=== PATIENT | male | born 1970 | race Caucasian/White ===

== ENCOUNTER 2023-04-22 10:15 | Emergency (ER) | payer OTHER, SELFPAY ==
[2023-04-22 10:21] VITALS: BP 149/106; PULSE 74; RESP 18; TEMP 36.9; O2SAT 100; BMI 43.6
[2023-04-22] MEDS: KETOROLAC TROMETHAMINE 60 MG/2 ML VIAL IM (11:03)
[2023-04-22] MEDS: ACETAMINOPHEN 500 MG TABLET PO (11:03)
--- NOTE | 2023-04-22 11:49 | ED_ITS ---
HPI - General Adult General Chief complaint: Neck Pain/Injury Stated complaint: BACK PAIN Time Seen by Provider: 04/22/23 10:30 Source: patient Mode of arrival: walk-in History of Present Illness HPI narrative: Patient is a 52-year-old male who is presenting to the Emergency Room with chief complaint of left upper thoracic pain this started this morning. Patient had no acute injury that he is aware of yesterday. Patient has no Tylenol home. Patient takes blood thinners. Patient is aware that he cannot take long-term anti- inflammatories with blood thinners. Patient needs to buy some Tylenol. Patient does not remember any type of heavy lifting, twisting or turning yesterday. 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 He has no headache or neck pain. No chest pain or yadi rtness of breath. No other acute complaints. Patient went to an urgent care earlier, stated it was a 2 hour wait, so he came to the Emergency Room for evaluation. No rash. No other acute complaints. . All systems are negative except as noted/marked. All systems reviewed and otherwise negative. . Nurses note and vital signs reviewed and patient is not hypoxic. General: The patient appears well and in no apparent distress. Patient is resting comfortably on cart. Patient is not toxic, lethargic, or listless Skin: Warm, dry, no pallor noted. There is no rash noted. No petechiae, purpura. Head: Normocephalic, atraumatic Eye: Normal conjunctiva, no drainage, EOMI. PERRL Ears, Nose, Mouth, and Throat: oral mucosa is moist. Nares patent. Mouth without vesicles. Cardiovascular: Regular Rate and Rhythm, no murmur, gallop, rub; patient has no tenderness to palpation to the anterior, lateral chest wall. Respiratory: Patient is in no distress, no accessory muscle use, lungs are clear to auscultation, no wheezing, rales or rhonchi Back: patient has mild to moderate tenderness to palpation to the soft tissue to left upper thoracic area over the scapula. Patient has no midline or paracer vical tenderness to palpation, full range of motion of cervical spinal no difficulty, patient has no rash. Patient has no midline thoracic pain. Patient has pain along the left trapezius muscle, pain is reproducible with range of motion of left upper extremity as well. non-tender, no CVA tenderness bilaterally to percussion. No CT LS midline pain GI: soft, no tenderness to palpation, no masses appreciated. No rebound, guarding, or rigidity noted. No flank pain bilateral, No distention Musculoskeletal: Patient has full range of motion of all of the extremities, no motor, sensory, or focal neurological deficits Neurological: A&O x3, normal speech Psychiatric: Cooperative Related Data Allergies Allergy/AdvReac Type Severity Reaction Status Date / Time No Known Drug Allergies Allergy Verified 04/22/23 10:21 Exam Constitutional Vital Signs, click to edit/add: Last Vital Signs Temp 98.4 F 04/22/23 10:21 Pulse 74 04/22/23 10:21 Resp 18 04/22/23 10:21 BP 149/106 H 04/22/23 10:21 Pulse Ox 100 04/22/23 10:21 O2 Del Method Room Air 04/22/23 10:21 Course Vital Signs Vital signs: Vital Signs Temperature 98.4 F 04/22/23 10:21 Pulse Rate 74 04/22/23 10:21 Respiratory Rate 18 04/22/23 10:21 Blood Pressure 149/106 H 04/22/23 10:21 Pulse Oximetry 100 04/22/23 10:21 Oxygen Delivery Method Room Air 04/22/23 10:21 Temperature 98.4 F 04/22/23 10:21 Pulse Rate 74 04/22/23 10:21 Respiratory Rate 18 04/22/23 10:21 Blood Pressure 149/106 H 04/22/23 10:21 Pulse Oximetry 100 04/22/23 10:21 Oxygen Delivery Method Room Air 04/22/23 10:21 Medical Decision Making MDM Narrative Medical decision making narrative: patient was given Tylenol and injection of Toradol. Patient was educated that he could use NSAIDs short-term. Patient can use Tylenol. Patient does not want a muscle relaxer. Patient was given a work note. Patient was educated on ice and stretching. No questions at discharge. Discharge Plan Discharge Chief Complaint: Neck Pain/Injury Clinical Impression: Acute left-sided thoracic back pain Patient Disposition: Home, Self-Care Condition: Fair Instructions: Thoracic Pain (ED), Neck Pain (ED) Additional Instructions: do not use heat as discussed. Ice 20 minutes on, 20 minutes off. Use Tylenol. You may use short-term at sent for the next 3-4 days to help with pain and inflammation along with ice. if no improvement, follow up with chiropractor or your PCP for physical therapy if needed. Work restrictions given. Stand Alone Forms: Work/School Release, Portal Instructions Referrals: Evelio Soto MD [Primary Care Provider] - 1 week
[2023-04-22 11:54] VITALS: BP 147/88; PULSE 83; RESP 18; O2SAT 97
== END 2023-04-22 11:57 | disposition home or self-care (01) ==
PROVIDERS: Emergency Provider Emergency Medicine; PCP Family Medicine
DX: M54.6 Pain in thoracic spine (principal); Z79.899 Other long term (current) drug therapy
CPT/HCPCS: 96372; 99284

== ENCOUNTER 2023-04-28 16:09 | Outpatient (OUT) | payer OTHER, SELFPAY ==
[2023-04-28 16:33] LABS: Basophils Percent Auto 0.6 % (0.2-2.0); Eosinophils Absolute Auto 0.1 10^3/uL (0.0-0.7); Eosinophils Percent Auto 2.8 % (0.9-7.0); Hematocrit 39.7 % (42.0-54.0); Hemoglobin 13.8 g/dL (14.0-18.0); Immature Granulocytes Abs Auto 0.02 10^3/uL (0.00-0.03); Immature Granulocytes Pct Auto 0.4 % (0.0-0.5); Lymphocytes Absolute Auto 1.3 10^3/uL (1.2-3.8); Lymphocytes Percent Auto 25.4 % (20.5-60.0); Mean Corpuscular HGB Conc 34.8 g/dL (29.9-35.2); Mean Corpuscular Hemoglobin 34.5 pg (25.9-34.0); Mean Corpuscular Volume 99.3 fL (80.0-94.0); Mean Platelet Volume 10.2 fL (9.5-13.5); Monocytes Absolute Auto 0.5 10^3/uL (0.3-0.8); Monocytes Percent Auto 10.6 % (1.7-12.0); Neutrophils Percent Auto 60.2 % (43.0-75.0); Platelet Count 150 10^3/uL (150-450); Red Cell Distribution Width 11.5 % (11.0-15.0); White Blood Count 4.9 10^3/uL (4.0-11.0)
[2023-04-28 17:06] LABS: Alanine Aminotransferase 56 U/L (16-63); Albumin Globulin Ratio 0.8; Albumin Level 3.3 g/dL (3.4-5.0); Alkaline Phosphatase 117 U/L (46-116); Anion Gap 9.4; Aspartate Amino Transferase 35 U/L (15-37); BUN Creatinine Ratio 13.8; Bilirubin Direct 0.3 mg/dL (0.0-0.2); Carbon Dioxide 27.7 mmol/L (21.0-32.0); Chloride 97 mmol/L (98-107); Chol HDL Ratio 2.3; Cholesterol 169 mg/dL (<=200); Estimated GFR (African America >60 (>=60); Estimated GFR (Non-African Ame >60 (>=60); Globulin 4.3 g/dL; Glucose 277 mg/dL (74-106); HDL Cholesterol 73 mg/dL (40-60); Potassium 4.1 mmol/L (3.5-5.1); Sodium 130 mmol/L (136-145); Thyroid Stimulating Hormone 2.449 uIU/mL (0.358-3.740); Total Protein 7.6 g/dL (6.4-8.2); Triglycerides 135 mg/dL (<=150)
[2023-04-28 17:26] LABS: Prostate Specific Antigen Scrn 0.24 ng/mL (<=4.00)
[2023-04-28 17:45] LABS: Estimated Average Glucose 324 mg/dL; Glycohemoglobin A1C 12.9 % (4.5-6.2)
== END 2023-04-28 16:10 | disposition home or self-care (01) ==
LOC: LAB 16:10
PROVIDERS: PCP Family Medicine; Visit Provider Family Medicine
DX: Z00.00 Encounter for general adult medical examination without abnormal findings (principal); Z12.5 Encounter for screening for malignant neoplasm of prostate
CPT/HCPCS: 36415; 80048; 80061; 80076; 83036; 84443; 85025; G0103

== ENCOUNTER 2025-05-01 20:24 | Emergency (ER) | payer OTHER, SELFPAY ==
[2025-05-01 20:29] VITALS: BP 126/75; PULSE 82; TEMP 36.8; O2SAT 96; BMI 42.4
--- OUTSIDE RECORDS SUMMARY | 2025-05-01 20:31 | XMS_ITS | Encounter Summary ---
Author Organization [facility] Address [address] [place] [address] Phone Care Team Providers Care Electrical Controls Engineer Name Role Phone Evelio Soto MD Primary Care Provider + Evelio Soto MD Primary Care Provider + Encounter Details Date Type Department Care Team (Late st Contact Info) Description 04/27/2018 Orders Only [facility] [address] [place] [address] Conversion, Onbase Social History Tobacco Use Types Packs/Day Years Used Date Smoking Tobacco: Never Assessed Sex and Gender Information Value Date Recorded Sex Assigned at Not on file Legal Sex Male 1:44 AM EST Gender Identity Not on file Sexual Orientation Not on file documented as of this encounter Plan of Treatment Upcoming Encounters Date Type Department Care Team (Late st Contact Info) Description 12/08/2025 9:00 AM EDT Office Visit [facility] [address] [facility] [address] [place] [address] Og Tobin DO [address] [facility] [address] [place] [address] Scheduled Orders Name Type Priority Associated Diagnoses Orde r Schedule OUTSIDE LAB SCAN Lab Ordered: 04/27/2018 documented as of this encounter Visit Diagnoses Not on filedocumented in this encounter Care Teams Electrical Controls Engineer Relationship Specialty Start Date End Date Evelio Soto MD PCP - General 02/18/22 12/16/23 Evelio Soto MD [address] [place] [address] PCP - General Family Medicine 12/17/23 documented as of this encounter
--- OUTSIDE RECORDS SUMMARY | 2025-05-01 20:31 | XMS_ITS | Encounter Summary ---
Author Organization [facility] Address [address] [place] [address] Care Team Providers Care Information Systems Security Manager Name Role Phone Evelio Soto MD Primary Care Provider [phone] Reason for Visit * Reason Comments Med Refill Encounter Details Date Type Department Care Team (Late st Contact Info) Description 12/28/2024 Refill [facility] [address] [place] [address] Evelio Soto MD [address] [place] [address] Type 2 diabetes mellitus with hyperglycemia (HCC) Social History Tobacco Use Types Packs/Day Years Used Date Smoking Tobacco: Former Cigarettes 1 33.7 1 989 - 06/2022 Smokeless Tobacco: Never Sex and Gender Information Value Date Recorded Sex Assigned at Not on file Legal Sex Male 1:55 PM EDT Gender Identity Not on file Sexual Orientation Not on file documented as of this encounter Miscellaneous Notes * Telephone Encounter - AMISHA HERMOSILLO - 12/28/2024 8:24 AM EDT MEDICATION SENT TO [facility] documented in this encounter Plan of Treatment Upcoming Encounters Date Type Department Care Team (Late Contact Info) Description 08/05/2025 11:30 AM EST Office Visit [facility] [address] [place] [address] Evelio Soto MD [address] [place] [address] documented as of this encounter Visit Diagnoses Diagnosis Type 2 diabetes mellitus with hyperglycemia (HCC) documented in this encounter Care Teams Information Systems Security Manager Relationship Specialty Start Date End Date Evelio Soto MD [address] [place] [address] PCP - General Family Medicine 05/07/24 documented as of this encounter
--- OUTSIDE RECORDS SUMMARY | 2025-05-01 20:31 | XMS_ITS | Clinical Summary ---
Author Organization [facility] Address [address] [place] [address] Phone Care Team Providers Care Assistant Designer Name Role Phone Evelio Soto MD Primary Care Provider + Allergies Active Allergy Reactions Criticality Noted Date Comments Glipizide Nausea/vomiting 12/17/2023 Medications aspirin 81 mg EC tablet Take 1 tablet (81 mg) by mouth once daily. Active metFORMIN XR 500 mg 24 hr tablet Take 1 tablet (500 mg) by mouth 2 times a day. 4 Active furosemide (Lasix) 40 mg tablet Take 1 tablet (40 mg) by mouth once daily. Active valsartan (Diovan) 160 mg tabletIndications:M oderate mixed hyperlipidemia not requiring statin therapy Take 1 tablet (160 mg) by mouth once daily. 90 tablet 3 4 Active metoprolol tartrate (Lopressor) 50 mg tabletIndications:H ypertension, unspecified type,Acute heart failure with normal ejection fraction,Coronary artery disease involving [place] coronary artery of [place] heart without angina pectoris Take 1 tablet by mouth 2 times a day. 180 tablet 3 4 Active atorvastatin (Lipitor) 40 mg tabletIndications:C oronary artery disease involving [place] coronary artery of [place] heart without angina pectoris,Acute heart failure with normal ejection fraction,Hx of percutaneous transluminal coronary angioplasty Take 1 tablet (40 mg) by mouth once daily at bedtime. 90 tablet 3 5 12/09/19 26 Active nitroglycerin (Nitrostat) 0.4 mg SL tabletIndications:H yperlipidemia, unspecified hyperlipidemia type Place 1 tablet (0.4 mg) under the tongue every 5 minutes if needed for chest pain. 90 tablet 2 Active Active Problems Problem Noted Date Diagnosed Date Hx of percutaneous transluminal coronary angiopl asty 12/08/2024 Class 2 obesity with body ma ss index (BMI) of 38.0 to 38.9 in adult 12/17/2023 Former cigarette smoker 12/17/2023 Acute heart failure with normal ejection fractio n 10/22/2023 Abnormal stress test 10/22/2023 Coronary artery disease invo lving [place] coronary artery of [place] heart without angina pectoris 10/22/2023 Diabetes (Multi) 10/22/2023 Hyperlipemia 10/22/2023 Hypertension 10/22/2023 Family History Medical History Relation Name Comments s/p drug eluting coronary stent placement Father Diabetes type I Mother Relation Name Status Comments Father Mother Social History Tobacco Use Types Packs/Day Years Used Date Smoking Tobacco: Former Cigarettes Q uit: 2021 Smokeless Tobacco: Never Tobacco Cessation:Counseling Given: Not Answered Alcohol Use Standard Drinks/Week Comments Yes 0 (1 standard drink = 0.6 oz pur e alcohol) occasional Sex and Gender Information Value Date Recorded Sex Assigned at Not on file Legal Sex Male 1:44 AM EST Gender Identity Not on file Sexual Orientation Not on file Last Filed Vital Signs Vital Sign Reading Time Taken Comments Blood Pressure 118/70 12/08/2024 9:12 AM EDT Pulse 68 12/08/2024 9:12 AM EDT Temperature - - Respiratory Rate - - Oxygen Saturation - - Inhaled Oxygen Concentration - - Weight 118 kg (260 lb) 12/08/2024 9:12 AM EDT Height 167.6 cm (5' 6 ) 12/08/2024 9:12 AM EDT Body Mass Index 41.97 12/08/2024 9:12 AM EDT Plan of Treatment Upcoming Encounters Date Type Department Care Team (Late st Contact Info) Description 12/08/2025 9:00 AM EDT Office Visit [facility] [address] [facility] [address] [place] [address] gO Tobin DO [address] [facility] [address] [place] [address] Health Maintenance Due Date Last Done Comments CT Colonography 1970 Colonoscopy 1970 Colorectal Cancer Screening 1970 Creatinine Level 1970 Diabetes: Hemoglobin A1C 1970 Echocardiogram 1970 FIT-DNA (Cologuard) 1970 FIT 1970 HIV Screening 1970 Lipid Panel 1970 Potassium Level 1970 Sigmoidoscopy 1970 MMR Vaccines (1 of 1 - Standard series) 1971 COVID-19 Vaccine (#1) 1975 Diabetes: Retinopathy Screening 1980 Hepatitis C Screening 1988 Hepatitis B Vaccines (1 of 3 - 19+ 3-dose series) 1989 Pneumococcal Vaccine (1 of 2 - PCV) 1989 Zoster Vaccines (1 of 2) 1989 PSA Prostate Cancer Screening 2020 Influenza Vaccine (#1) 2025 Diabetes: Urine Protein Screening 06/14/2025 06/14/2024 Yearly Adult Physical 11/06/2025 11/05/2024 DTaP/Tdap/Td Vaccines (3 - T d or Tdap) 06/14/2032 06/14/2022, 10/26/2017 HIB Vaccines Aged Out No longer eligi ble based on patient's age to complete this topic HPV Vaccines Aged Out No longer eligi ble based on patient's age to complete this topic Hepatitis A Vaccines Aged Out No long er eligible based on patient's age to complete this topic IPV Vaccines Aged Out No longer eligi ble based on patient's age to complete this topic Meningococcal Vaccine Aged Out No john srinivasa eligible based on patient's age to complete this topic Rotavirus Vaccines Aged Out No longer eligible based on patient's age to complete this topic Insurance * Guarantor: Darrel Roy Account Type Relation to Patient Date of Phone Billing Address Personal/Family Self 1970 [address] [facility] [place] [address] [facility] [employer] * Guarantor: Darrel Roy Account Type Relation to Patient Date of Phone Billing Address Personal/Family Self 1970 [address] [place] [address] [facility] [employer] Care Teams Assistant Designer Relationship Specialty Start Date End Date Evelio Soto MD [address] [place] [address] PCP - General Family Medicine 12/17/23
--- OUTSIDE RECORDS SUMMARY | 2025-05-01 20:31 | XMS_ITS | Encounter Summary ---
Author Organization [facility] Address [address] [place] [address] Phone Care Team Providers Care Airline Pilot Name Role Phone Evelio Soto MD Primary Care Provider + Evelio Soto MD Primary Care Provider + Encounter Details Date Type Department Care Team (Late st Contact Info) Description 11/25/2022 Orders Only [facility] [address] [place] [address] Conversion, Onbase Social History Tobacco Use Types [...] Description 12/08/2025 9:00 AM EDT Office Visit [facility] [address] [facility] [address] [place] [address] Og Tobin DO [address] [facility] [address] [place] [address] Scheduled Orders Name Type Priority Associated Diagnoses Orde r Schedule OUTSIDE LAB SCAN Lab Ordered: 11/25/2022 documented as of this encounter Visit Diagnoses Not on filedocumented in this encounter Care Teams Airline Pilot Relationship Specialty Start Date End Date Evelio Soto MD PCP - General 02/18/22 12/16/23 Evelio Soto MD [address] [place] [address] PCP - General Family Medicine 12/17/23 documented as of this encounter
--- OUTSIDE RECORDS SUMMARY | 2025-05-01 20:31 | XMS_ITS | Clinical Summary ---
Author Organization [facility] Healthcare Address [address] [place] [address] Care Team Providers Care Telemarketing Sales Representative Name Role Phone Evelio Soto MD Primary Care Provider [phone] Allergies Active Allergy Reactions Criticality Noted Date Comments Glipizide GI intolerance Low 10/27/2023 Medications aspirin 81 MG EC tablet Take 81 mg by mouth in the morning. Active atorvastatin (Lipitor) 80 MG tablet Take 80 mg by mouth Daily Active metoprolol tartrate (Lopressor) 50 MG tabletIndications: Essential hypertension, benign Take 1 tablet (50 mg) by mouth in the morning and 1 tablet (50 mg) before bedtime. 180 tablet 3 4 Active valsartan (Diovan) 160 MG tabletIndications: Essential hypertension, benign Take 1 tablet (160 mg) by mouth Daily 30 tablet 11 4 09/03/20 25 Active metFORMIN XR (Glucophage-XR) 500 MG 24 hr tabletIndications: Type 2 diabetes mellitus with hyperglycemia (HCC) TAKE 1 TABLET BY MOUTH IN THE MORNING AND 1 TABLET BEFORE BEDTIME 60 tablet 5 5 Active furosemide (Lasix) 40 MG tabletIndications: Venous insufficiency TAKE 1 TABLET BY MOUTH DAILY NEEDED FOR EDEMA. 30 tablet 3 5 Active Active Problems Problem Noted Date Diagnosed Date Annual physical exam 11/05/2024 Assessment & Plan (11/05/2024 9:50 AM EST): Reviewed labs. Discussed proper diet and regular aerobic exercise. Need aerobic exercise 5-6 days a week for 30 minutes at a time. Smaller portions and limit total calories. Declined colon cancer screening. Tetanus every 10 years. Advised not to smoke. Discussed daily Aspirin therapy. Sebaceous cyst 08/05/2024 Assessment & Plan (08/05/2024 10:36 AM EST): Lesion appears to be benign cyst and monitor. If changes can refer to derm. Class 3 severe obesity due t o excess calories with serious comorbidity and body mass index (BMI) of 40.0 to 44.9 in adult 05/07/2024 Assessment & Plan (02/02/2025 10:39 AM EDT): Weight loss indicated. Assessment & Plan (11/05/2024 9:50 AM EST): Weight loss indicated. Assessment & Plan (08/05/2024 10:36 AM EST): Weight loss indicated. Assessment & Plan (05/07/2024 11:10 AM EDT): Weight loss indicated Essential hypertension, benign 10/27/2023 Assessment & Plan (02/02/2025 10:39 AM EDT): BP controlled and monitor PRN. Assessment & Plan (11/05/2024 9:51 AM EST): BP controlled and monitor PRN. Assessment & Plan (08/05/2024 10:35 AM EST): BP controlled and monitor PRN. Assessment & Plan (05/07/2024 11:09 AM EDT): BP controlled and monitor PRN. Assessment & Plan (10/27/2023 10:05 AM EST): BP controlled and monitor PRN. CAD in [place] 10/27/2023 Assessment & Plan (02/02/2025 10:39 AM EDT): No symptoms and follow up with cardiology. Assessment & Plan (08/05/2024 10:35 AM EST): No symptoms and follow up with cardiology. Assessment & Plan (05/07/2024 11:08 AM EDT): No symptoms and follow up with cardiology. Assessment & Plan (10/27/2023 10:05 AM EST): No symptoms and follow up with cardiology. Male erectile disorder 10/27/2023 Type 2 diabetes mellitus wit h hyperglycemia, without long-term current use of insulin 10/27/2023 Assessment & Plan (02/02/2025 10:39 AM EDT): BS remain elevated and did not tolerate glipizide. Due for A1C. Continue metformin. Stick to ADA diet and limit carbs. Assessment & Plan (11/05/2024 9:51 AM EST): BS remain elevated and add glipizide. Take with dinner and continue metformin. Stick to ADA diet and limit carbs. Assessment & Plan (08/05/2024 10:36 AM EST): BS remains elevated and last A1C 10.0. Try januvia and see if able to get coverage. Stick to ADA diet and limit carbs. Assessment & Plan (05/07/2024 11:09 AM EDT): Reports BS elevated and due for A1C. Try rybelsus and see if able to get coverage. Stick to ADA diet and limit carbs. Assessment & Plan (10/27/2023 10:05 AM EST): Reports BS elevated and due for A1C. Stick to ADA diet and limit carbs. Chronic heart failure with p reserved ejection fraction (HFpEF) 10/27/2023 Assessment & Plan (02/02/2025 10:39 AM EDT): Edema stable and use lasix PRN. Elevate legs PRN. Assessment & Plan (11/05/2024 9:50 AM EST): Edema stable and use lasix PRN. Elevate legs PRN. Assessment & Plan (08/05/2024 10:35 AM EST): Edema stable and use lasix PRN. Elevate legs PRN. Assessment & Plan (05/07/2024 11:09 AM EDT): Edema stable and use lasix PRN. Elevate legs PRN. Assessment & Plan (10/27/2023 10:06 AM EST): Edema unchanged and try lasix. Elevate legs PRN. Follow up with vascular. Resolved Problems Problem Noted Date Diagnosed Date Resolved Date Chronic heart failure with p reserved ejection fraction (HFpEF) 10/27/2023 10/27/2023 Encounters Date Type Department Care Team Description 02/02/2025 9:30 AM EDT Office Visit [facility] [address] [place] [address] Evelio Soto MD Type 2 diabetes mellitus with hyperglycemia, without long-term current use of insulin (HCC) (Primary Dx); Essential hypertension, benign ; Chronic heart failure with preserved ejection fraction (HFpEF) ([facility]); CAD in [place] ; Class 3 severe obesity due to excess calories with serious comorbidity and body mass index (BMI) of 40.0 to 44.9 in adult ([facility]) 02/02/2025 Bamboo flowsheet [facility] [address] [place] [address] Evelio Soto MD from Last 3 Months Family History Medical History Relation Name Comments Diabetes Mother Relation Name Status Comments Mother Social History Tobacco Use Types Packs/Day Years Used Date Smoking Tobacco: Former Cigarettes 1 33.7 1 989 - 06/2022 Smokeless Tobacco: Never Tobacco Cessation:Counseling Given: Not Answered Sex and Gender Information Value Date Recorded Sex Assigned at Not on file Legal Sex Male 1:55 PM EDT Gender Identity Not on file Sexual Orientation Not on file Last Filed Vital Signs Vital Sign Reading Time Taken Comments Blood Pressure 132/74 02/02/2025 9:58 AM EDT Pulse 76 02/02/2025 9:58 AM EDT Temperature 36.4 C (97.5 F) 02/02/2025 9:58 AM EDT Respiratory Rate 20 02/02/2025 9:58 AM EDT Oxygen Saturation 98% 02/02/2025 9:58 AM EDT Inhaled Oxygen Concentration - - Weight 122 kg (268 lb) 02/02/2025 9:58 AM EDT Height 167.6 cm (5' 6 ) 02/02/2025 9:58 AM EDT Body Mass Index 43.26 02/02/2025 9:58 AM EDT Plan of Treatment Upcoming Encounters Date Type Department Care Team (Late st Contact Info) Description 08/05/2025 11:30 AM EST Office Visit [facility] [address] [place] [phone] Evelio Soto MD [address] [place] [address] Health Maintenance Due Date Last Done Comments CT Colonography 1970 Colonoscopy 1970 FIT-DNA 1970 FIT 1970 FOBT 1970 Lung Cancer Screening Shared Decision Making 1970 Sigmoidoscopy 1970 Diabetes: Retinopathy Screening 12/02/2024 12/02/2022 Diabetes: Hemoglobin A1C 12/08/2024 024, 11/17/2023 Colorectal Cancer Screening 05/07/2025 Postponed from 1970 (Patient Refused) Influenza Vaccine (#1) 2025 Diabetes: Urine Protein Screening 06/14/2025 06/14/2024 Procedures Procedure Name Priority Date/Time Associated Diagnosis Comments ALBUMIN, URINE, RANDOM Routine 06/14/2024 2:08 PM EDT Type 2 diabetes mellitus with hyperglycemia, without long-term current use of insulin (HCC) HEMOGLOBIN A1C Routine 06/10/2024 3:24 PM EDT Annual physical exam from Last 3 Months or Most Recently Relevant to Health Maintenance Results * Albumin, urine, random (06/14/2024 2:08 PM EDT) ALBUMIN, URINE 2.1 See Note: mg/dL [facility] Comment: Reference Range: Reference Range Not established [facility] Comment: The ADA defines abnormalities in albumin excretion as follows: Albuminuria Category Result (mg/g creatinine) Normal to Mildly increased <30 Moderately increased 30-299 Severely increased > OR = 300 The ADA recommends that at least two of three specimens collected within a 3-6 month period be abnormal before considering a patient to be within a diagnostic category. Urine Urine specimen obtained by clean catch procedure / Unknown 06/14/2024 2:08 PM EDT 06/15/2024 2:10 PM EDT Narrative [facility] - 06/16/2024 11:03 AM EDT SPLIT 06/10/2024 FROM [id number] Resulting Agency Comment Performing Organization Information Site ID: QPT Name: [facility] Address: [address] [place] [address], [address] [place] [id number] Director: Grant Gao MD Evelio Soto MD LAB URINE ORDERABLES Final Resul t [facility] * (ABNORMAL) Hemoglobin A1c (06/10/2024 3:24 PM EDT) Hemoglobin A1C 10.0(H) <5.7 % of total Hgb [facility] Comment: For someone without known diabetes, a hemoglobin A1c value of 6.5% or greater indicates that they may have diabetes and this should be confirmed with a follow-up test. For someone with known diabetes, a value <7% indicates that their diabetes is well controlled and a value greater than or equal to 7% indicates suboptimal control. A1c targets should be individualized based on duration of diabetes, age, comorbid conditions, and other considerations. Currently, no consensus exists regarding use of hemoglobin A1c for diagnosis of diabetes for children. This test was performed on the GoComm aria c503 platform. Effective 09/15/23, a change in test platforms from the [employer] Scientist to the Ayo aria c503 may have shifted HbA1c results compared to historical results. Based on laboratory validation testing conducted at [facility], the Ayo platform relative to the Pinzon platform had an average increase in HbA1c value of < or = 0.3%. This difference is within accepted variability established by the National Glycohemoglobin Standardization Program. Note that not all individuals will have had a shift in their results and direct comparisons between historical and current results for testing conducted on different platforms is not recommended. Blood Venous blood specimen / Unknown 06/10/2024 3:24 PM EDT 06/10/2024 3:25 PM EDT Narrative [facility] - 06/11/2024 5:49 AM EDT FASTING:NO COLLECTION KIT GIVEN TO PATIENT. PATIENT ADVISED TO RETURN. FASTING: NO Resulting Agency Comment Performing Organization Information Site ID: QPT Name: [facility] Address: [address] [place] [address], [address] [place] [phone] Director: Grant Gao MD us Evelio Soto MD LAB BLOOD ORDERABLES Final Resul t [facility] from Last 3 Months or Most Recently Relevant to Health Maintenance Insurance * Guarantor: Darrel Roy Account Type Relation to Patient Date of Phone Billing Address Personal/Family Self 1970 [address] [place] [address] [employer] Care Teams Telemarketing Sales Representative Relationship Specialty Start Date End Date Evelio Soto MD [address] [place] [id number] PCP - General Family Medicine 05/07/24
--- OUTSIDE RECORDS SUMMARY | 2025-05-01 20:31 | XMS_ITS | Clinical Summary ---
Author Organization [email or web address] tem Address [id number] [address] [place] [address] Care Team Providers Care Fiscal Officer Name Role Phone Evelio Soto MD Primary Care Provider [phone] Allergies No known active allergies Medications metoprolol tartrate (LOPRESSOR) 50 mg tabletIndication s:hypertension Take 1 tablet (50 mg total) by mouth in the morning and 1 tablet (50 mg total) before bedtime. Indications: high blood pressure. Active valsartan (DIOVAN) 80 mg tabletIndication s:hypertension Take 2 tablets (160 mg total) by mouth in the morning. Indications: high blood pressure. Active atorvastatin (LIPITOR) 40 mg tabletIndication s:hyperlipidemia Take 1 tablet (40 mg total) by mouth nightly Indications: excessive fat in the blood. Active nitroglycerin (NITROSTAT) 0.[address] 1 tablet (0.4 mg total) under the tongue every 5 (five) minutes as needed for chest pain. Active pediatric multivitamin (FRUITY CHEWS) tablet,chewable Chew 1 tablet and swallow in the morning. Active clopidogreL (PLAVIX) 75 mg tablet Take 1 tablet (75 mg total) by mouth in the morning. 2 Active aspirin 81 mg Take 1 tablet (81 mg total) by mouth in the morning. Active lidocaine (LIDODERM) 5 % Place 1 patch on the skin in the morning. Remove & Discard patch within 12 hours or as directed by . 30 patch 2 Active Additional Information Patient not taking.Reported on 07/25/2022 sennosides-docus ate sodium (SENOKOT-S) 8.6-50 mg Take 2 tablets by mouth nightly. 30 tablet 2 Active Additional Information Patient not taking.Reported on 07/25/2022 cyclobenzaprine (FLEXERIL) 5 mg tablet Take 1 tablet (5 mg total) by mouth every 8 (eight) hours as needed for muscle spasms. 42 tablet 2 Active gabapentin (NEURONTIN) 300 mg capsuleIndicatio ns:Closed fracture of multiple ribs of right side, initial encounter,Closed fracture of right scapula, unspecified part of scapula, initial encounter Take 1 capsule (300 mg total) by mouth every 8 (eight) hours. 42 capsule 2 Active Additional Information Patient not taking.Reported on 07/25/2022 FARXIGA 10 mg tablet Take 1 tablet (10 mg total) by mouth in the morning. 2 Active metFORMIN XR (GLUCOPHAGE XR) 500 mg 24 hr tablet Take 1 tablet (500 mg total) by mouth in the morning. 3 Active glipiZIDE (GLUCOTROL) 5 mg tablet Take 1 tablet (5 mg total) by mouth in the morning. 3 Active Active Problems Problem Noted Date Diagnosed Date Closed nondisplaced fracture of body of right scapula with routine healing 07/04/2022 Multiple closed fractures of ribs of right side 06/14/2022 [address] stairs 06/14/2022 Immunizations Immunization Administration Dates Next Due DTP 06/14/2022 Tdap 10/26/2017 Social History Tobacco Use Types Packs/Day Years Used Date Smoking Tobacco: Former Smokeless Tobacco: Never Tobacco Cessation:Counseling Given: Not Answered Alcohol Use Standard Drinks/Week Comments Yes 0 (1 standard drink = 0.6 oz pur e alcohol) socially Childcare Answer Date Recorded Childcare Unknown 03/10/2019 Employment Answer Date Recorded Employment Unknown 03/10/2019 Purpose - Life Answer Date Recorded Purpose and direction in life Unknown Sex and Gender Information Value Date Recorded Sex Assigned at Not on file Legal Sex Male 11:40 AM EDT Gender Identity Not on file Sexual Orientation Not on file Last Filed Vital Signs Vital Sign Reading Time Taken Comments Blood Pressure 118/72 02/21/2023 11:21 AM EDT Pulse 74 07/25/2022 1:54 PM EDT Temperature 35.7 C (96.2 F) 07/25/2022 1:54 PM EDT Respiratory Rate 19 07/25/2022 1:54 PM EDT Oxygen Saturation 93% 06/16/2022 11:26 AM EDT Inhaled Oxygen Concentration - - Weight 126.1 kg (278 lb) 02/21/2023 11:21 AM EDT Height 165.1 cm (5' 5 ) 02/21/2023 11:21 AM EDT Body Mass Index 46.26 02/21/2023 11:21 AM EDT Plan of Treatment Health Maintenance Due Date Last Done Comments Depression Screening 1982 Tobacco Screening 1982 Zoster (Shingles) Vaccine (1 of 2) 2020 Adult BMI Screening 02/22/2024 02/21/2023 Influenza Vaccine 05/30/2025 DTaP,Tdap and Td Vaccines (3 - Td or Tdap) 06/14/2032 06/14/2022, 10/26/2017 Medical Devices Not on file Insurance * Guarantor: Darrel Roy Account Type Relation to Patient Date of Phone Billing Address Personal/Family Self 1970 [address] [place] [address] [employer] * Guarantor: Darrel Roy Account Type Relation to Patient Date of Phone Billing Address Workers Comp Self 1970 [address] [place] [address] WORKERS COMPENSATION - GENERIC PLAN Advance Directives * Full Code (Latest Code Status on File) Date Activated Date Inactivated Comments 06/14/2022 11:12 PM 06/16/2022 3:21 PM Care Teams Fiscal Officer Relationship Specialty Start Date End Date Evelio Soto MD PCP - General 10/26/17
--- OUTSIDE RECORDS SUMMARY | 2025-05-01 20:31 | XMS_ITS | Encounter Summary ---
Author Organization [employer] tem Address [id number] [address] [place] [address] Care Team Providers Care Boat Diesel Motor Mechanic Name Role Phone Evelio Soto MD Primary Care Provider [phone] Reason for Referral * Diagnostic Imaging (Routine) - Closed Specialty Diagnoses / Procedures Referred By Contac t Referred To Contact Radiology Diagnoses Pain Procedures CT brain without contrast [facility] [employer] [address] [place] [phone] Phone: tel: fax: Referral ID Status Reason Start Date Expiration Date Visits Re quested Visits Authorized [id number] Closed 06/14/2022 06/14/2023 1 1 * Diagnostic Imaging (Routine) - Closed Specialty Diagnoses / Procedures Referred By Contac t Referred To Contact Radiology Diagnoses Pain Procedures CT cervical spine without contrast [facility] [employer] [address] [place] [phone] Phone: tel: fax: Referral ID Status Reason Start Date Expiration Date Visits Re quested Visits Authorized [id number] Closed 06/14/2022 06/14/2023 1 1 * Diagnostic Imaging (Routine) - Closed Specialty Diagnoses / Procedures Referred By Contac t Referred To Contact Radiology Diagnoses Pain Procedures CT chest with contrast [facility] [address] [place] [phone] Phone: tel: fax: Referral ID Status Reason Start Date Expiration Date Visits Re quested Visits Authorized [id number] Closed 06/14/2022 06/14/2023 1 1 Encounter Details Date Type Department Care Team (Late st Contact Info) Description 06/14/2022 Orders Only [facility] [address] [place] [phone] Transcribe, Orders Support User Pain (Primary Dx) Social History Tobacco Use Types Packs/Day Years Used Date Smoking Tobacco: Former Smokeless Tobacco: Never Alcohol Use Standard Drinks/Week Comments Yes 0 [...] on file Sexual Orientation Not on file COVID-19 Exposure Response Date Recorded In the last month, have you been in contact with someone who was confirmed or suspected to have Coronavirus / COVID-19? No / Unsure 06/15/2022 12:56 PM EDT documented as of this encounter Functional Status documented as of this encounter Mental Status * Question Answer Entry Date Author Overall Cognitive Status WFL 06/15/2022 11:03 AM EDT Avery Dubois, PT documented in this encounter Plan of Treatment Not on file documented as of this encounter Results * CT chest with contrast (06/14/2022 5:40 PM EDT) us Scanning Provider External IMG CT ORDERABLES Fin al Result * CT cervical spine without contrast (06/14/2022 5:35 PM EDT) us Scanning Provider External IMG CT ORDERABLES Fin al Result * CT brain without contrast (06/14/2022 5:30 PM EDT) us Scanning Provider External IMG CT ORDERABLES Fin al Result * X-ray tibia fibula left minimum 2 views (06/14/2022 2:55 PM EDT) us Scanning Provider External IMG DIAGNOSTIC IMAGIN G ORDERABLES Final Result * X-ray shoulder right minimum 2 views (06/14/2022 2:50 PM EDT) us Scanning Provider External IMG DIAGNOSTIC IMAGIN G ORDERABLES Final Result * X-ray hip left 2-3 views with or without pelvis (06/14/2022 2:45 PM EDT) us Scanning Provider External IMG DIAGNOSTIC IMAGIN G ORDERABLES Final Result * X-ray chest 2 views (06/14/2022 2:40 PM EDT) us Scanning Provider External IMG DIAGNOSTIC IMAGIN G ORDERABLES Final Result documented in this encounter Visit Diagnoses Diagnosis Pain- Primary Generalized pain documented in this encounter Care Teams Boat Diesel Motor Mechanic Relationship Specialty Start Date End Date Evelio Soto MD PCP - General 10/26/17 documented as of this encounter
--- OUTSIDE RECORDS SUMMARY | 2025-05-01 20:31 | XMS_ITS | Encounter Summary ---
Author Organization [employer] Address [id number] [address] [place] [address] Care Team Providers Care Director Of Market Intelligence Name Role Phone Evelio Soto MD Primary Care Provider [phone] Encounter Details Date Type Department Care Team (Late st Contact Info) Description 02/21/2023 Telephone [facility] [address] [place] [phone] Clay Askew CMA Social History Tobacco Use Types Packs/Day Years [...] as of this encounter Plan of Treatment Not on file documented as of this encounter Visit Diagnoses Not on filedocumented in this encounter Care Teams Director Of Market Intelligence Relationship Specialty Start Date End Date Evelio Soto MD PCP - General 10/26/17 documented as of this encounter
--- NOTE | 2025-05-01 20:49 | PC.NURSE ---
Patient to ED with vericose vein that has been bleeding several times over the past week. He had to call EMS on multiple occasions. EMS brought him here tonight after placing a pressure dressing. When pressure dressing is removed in ED, the bleeding is stopped.
--- NOTE | 2025-05-01 21:30 | ED.GENADUL1 ---
HPI HPI - General Adult General Chief complaint: Extremity Problem, Nontraumatic Stated complaint: other Time Seen by Provider: 05/01/25 20:40 Source: patient Mode of arrival: ambulance Limitations: no limitations History of Present Illness HPI narrative: Presents to the ED with a complaint of a varicosity that has been bleeding throughout the day. He called EMS 1 time and they got the bleeding controlled however he called later again tonight several hours later the bleeding is controlled however he is concerned it may rebleed. Patient does have several varicosities he is not on anticoagulants. He has had no injury to the area. No redness or warmth. He is ambulatory and has no other complaints. Onset (ago): hour(s) Location: Reports left and lower extremity Radiation: Reports non-radiation Severity: mild Related Data Home Medications ?Medication ?Instructions ?Recorded ?Confirmed albuterol sulfate 90 mcg/actuation 2 puff inhalation Q6H PRN 05/01/25 05/01/25 aerosol inhaler shortness of breath or wheezing aspirin 81 mg tablet,delayed 81 mg PO DAILY 05/01/25 05/01/25 release (Adult Aspirin Regimen) furosemide 40 mg tablet 40 mg PO .qhs 05/01/25 05/01/25 metformin 500 mg tablet,extended 500 mg PO BID 05/01/25 05/01/25 release 24 hr metoprolol tartrate 50 mg tablet 50 mg PO Q12H 05/01/25 05/01/25 nitroglycerin 0.4 mg sublingual 0.4 mg sublingual Q5M PRN chest 05/01/25 05/01/25 tablet pain valsartan 160 mg tablet 160 mg PO QDAY 05/01/25 05/01/25 Allergies Allergy/AdvReac Type Severity Reaction Status Date / Time No Known Drug Allergies Allergy Verified 05/01/25 20:28 Opioid HPI Opioid Management Most Recent Opioid Data: Last Pain Scale 5 04/22/23, 11:08 PFSH PFSH Social History Little interest or pleasure in doing things: not at all Feeling down, depressed, or hopeless: not at all Exam Constitutional Vital Signs, click to edit/add: Last Vital Signs Temp 98.2 F 05/01/25 20:29 Pulse 82 05/01/25 20:29 Resp 14 05/01/25 20:29 BP 126/75 05/01/25 20:29 Pulse Ox 96 05/01/25 20:29 O2 Del Method Room Air 05/01/25 20:29 Common normals: no apparent distress and oriented x3 Nutritional appearance: obese Chest Common normals: inspection of chest normal and palpation of chest normal Respiratory Common normals: normal respiratory effort and clear to auscultation bilaterally Cardio Common normals: regular rate, regular rhythm, S1 normal heart sound, S2 normal heart sound and peripheral pulses 2+ throughout Extremity Common normals: normal to inspection, full ROM, normal capillary refill and no calf tenderness Neuro Common normals: oriented x3 Sensorium/orientation: awake and alert Course Vital Signs Vital signs: Vital Signs Temperature 98.2 F 05/01/25 20:29 Pulse Rate 82 05/01/25 20:29 Respiratory Rate 14 05/01/25 20:29 Blood Pressure 126/75 05/01/25 20:29 Pulse Oximetry 96 05/01/25 20:29 Oxygen Delivery Method Room Air 05/01/25 20:29 Temperature 98.2 F 05/01/25 20:29 Pulse Rate 82 05/01/25 20:29 Respiratory Rate 14 05/01/25 20:29 Blood Pressure 126/75 05/01/25 20:29 Pulse Oximetry 96 05/01/25 20:29 Oxygen Delivery Method Room Air 05/01/25 20:29 Medical Decision Making MDM Narrative Medical decision making narrative: Presents to the ED with a complaint of a varicosity that has been bleeding throughout the day. He called EMS 1 time and they got the bleeding controlled however he called later again tonight several hours later the bleeding is controlled however he is concerned it may rebleed. Patient does have several varicosities he is not on anticoagulants. He has had no injury to the area. No redness or warmth. He is ambulatory and has no other complaints. Patient is a 54-year-old obese male he does not appear to be in acute distress. Heart lung exam are unremarkable patient has good cap refill distally in all 4 extremities good pulses distally. He has several varicosities in the lower extremities. No calf tenderness. 1+ edema bilaterally. He states this is his baseline. He does have an area just superior of the malleoli are area that he states was bleeding. He is not actively bleeding at this time. It does appear to be crusted over at this time. Using some silver nitrate I did attempt to cauterize the area. I will refer the patient to vascular surgery. Patient was observed for 30 minutes after this procedure. Patient no longer had any bleeding or oozing. He will be discharged home with a referral to vascular surgery he was encouraged to elevate his legs to the evening return with worse or concerning symptoms Medical Records Medical records reviewed: Yes I reviewed the patient's medical records Discharge Plan Discharge Chief Complaint: Extremity Problem, Nontraumatic Clinical Impression: Bleeding from varicose veins of left lower extremity Patient Disposition: Home, Self-Care Time of Disposition Decision: 21:39 Condition: Good Prescriptions / Home Meds: No Action albuterol sulfate 90 mcg/actuation HFA aerosol inhaler 2 puff INHALATION Q6H PRN (Reason: shortness of breath or wheezing) furosemide 40 mg tablet 40 mg PO .qhs metformin 500 mg tablet extended release 24 hr 500 mg PO BID metoprolol tartrate 50 mg tablet 50 mg PO Q12H valsartan 160 mg tablet 160 mg PO QDAY nitroglycerin 0.4 mg tablet, sublingual 0.4 mg sublingual Q5M PRN (Reason: chest pain) aspirin [Adult Aspirin Regimen] 81 mg tablet,delayed release (DR/EC) 81 mg PO DAILY Print Language: Turkish Instructions: Potassium Nitrate/Silver Nitrate (On the skin) Referrals: Evelio Soto MD [Primary Care Provider, Family Practice] - 1 week
[2025-05-01 22:20] VITALS: BP 128/75; PULSE 81; O2SAT 96
== END 2025-05-01 22:27 | disposition home or self-care (01) ==
PROVIDERS: Emergency Provider Emergency Medicine; PCP Family Medicine
DX: I83.892 Varicose veins of left lower extremity with other complications (principal)
CPT/HCPCS: 99283